=== PATIENT | male | born 1980 | race Caucasian/White ===

== ENCOUNTER 2023-06-06 05:59 | Emergency (ER) | payer OTHER ==
[~2023-06-06] VITALS: Ht 177.8 cm; Wt 74.8 kg
[2023-06-06 06:47] LABS: BASOPHILS # (AUTO) 0.1 K/uL (0.0-0.2); BASOPHILS % (AUTO) 0.5 % (0.0-2.0); EOSINOPHILS # (AUTO) 1.6 K/uL (0.0-0.7); EOSINOPHILS % (AUTO) 12.5 % (0.0-6.0); HEMATOCRIT 44 % (39-51); LYMPHOCYTES # (AUTO) 1.8 K/uL (0.8-4.8); LYMPHOCYTES % (AUTO) 13.4 % (20.0-44.0); MEAN CORPUSCULAR HEMOGLOBIN 31 PG (26.0-33.0); MEAN CORPUSCULAR HGB CONC 34 g/dl (31.0-36.0); MEAN CORPUSCULAR VOLUME 93 fL (80-96); MONOCYTES % (AUTO) 7.2 % (2.0-12.0); NEUTROPHILS # (AUTO) 8.7 K/uL (1.8-8.9); NEUTROPHILS % (AUTO) 66.4 % (43.0-81.0); PLATELET COUNT (AUTO) 344 K/uL (150-450); RED BLOOD CELL COUNT(AUTO) 4.78 MIL/uL (4.5-6.0); RED CELL DISTRIBUTION WIDTH 13.5 % (11.5-15.0); WHITE BLOOD COUNT (AUTO) 13.2 K/uL (4.3-11.0)
[2023-06-06 06:56] LABS: CALCIUM, SERUM 9.1 mg/dL (8.5-10.1); CARBON DIOXIDE 24 mmol/L (21-32); CHLORIDE 106 mmol/L (98-107); CREATININE 0.8 mg/dL (0.6-1.3); GLUCOSE 120 mg/dL (74-106); SODIUM SERUM 139 mmol/L (136-145); UREA NITROGEN, BLOOD 23 mg/dL (7-18)
[2023-06-06 06:59] LABS: C-REACTIVE PROTEIN < 0.20 mg/dL (0.0-0.30)
[2023-06-06 07:00] LABS: ERYTHROCYTE SEDIMENTATION RATE 4 MM/HR (0-15)
[2023-06-06 07:06] LABS: ALANINE AMINOTRANSFERASE 39 U/L (12-78); ALBUMIN 3.7 g/dL (3.4-5.0); ALKALINE PHOSPHATASE 92 U/L (46-116); ASPARTATE AMINOTRANSFERASE 16 U/L (15-37); BILIRUBIN,TOTAL 0.5 mg/dL (0.2-1.0); TOTAL PROTEIN, SERUM 6.9 g/dL (6.4-8.2)
[2023-06-06] MEDS ORDERED: CEFTRIAXONE 1GM BAG (ER ONLY) 50 ML IV ONE (07:45)
[2023-06-06] MEDS: CEFTRIAXONE 1GM BAG (ER ONLY) 50 ML IV ONE (07:46)
[2023-06-06] MEDS ORDERED: CEPH500C2 PO (08:01)
[2023-06-06] MEDS ORDERED: SULF1TAB48 PO (08:01)
[2023-06-06 08:30] VITALS: BP 121/77; TEMP 98.4; O2SAT 98
== END 2023-06-06 08:30 | disposition home or self-care (01) ==
LOC: ER 06:11
DX: M70.22 Olecranon bursitis, left elbow (principal); L03.114 Cellulitis of left upper limb
CPT/HCPCS: 99284; 96365; 73080; 85025; 85652; 36415; 80053; 86140; J7030; J0696